=== PATIENT | male | born 1990 | race Caucasian/White ===

== ENCOUNTER 2017-08-01 19:14 | Emergency (ER) | payer OTHER ==
[~2017-08-01] VITALS: Ht 167.6 cm; Wt 81.6 kg
--- NOTE | 2017-08-01 19:16 | NUR ---
PT AMBULATORY TO ER BED 12. 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 NO ORAL TRAUMA NOTED. PLACED ON SEIZURE PRECAUTION. PT IS AAO. STATES NOT TAKING HIS MEDICATION FOR A WEEK NOW. C/O NAUSEA. AWAITING MD FIELDS.
--- NOTE | 2017-08-01 19:35 | NUR ---
DR WIGGINS AT BEDSIDE FOR EVAL.
--- NOTE | 2017-08-01 19:48 | NUR ---
TYPEWRITER ASSEMBLER AT BEDSIDE FOR BLOOD DRAW.
[2017-08-01 19:50] LABS: BASOPHILS # (AUTO) 0.2 /CMM (0.0-0.2); BASOPHILS % (AUTO) 1.7 % (0.0-2.0); EOSINOPHILS # (AUTO) 0.4 /CMM (0.0-0.7); HEMATOCRIT 43 % (39-51); HEMOGLOBIN 14.3 g/dL (13.5-17.5); LYMPHOCYTES # (AUTO) 4.1 /CMM (0.8-4.8); LYMPHOCYTES % (AUTO) 37.5 % (20.0-44.0); MEAN CORPUSCULAR HEMOGLOBIN 29 PG (26.0-33.0); MEAN CORPUSCULAR HGB CONC 33 g/dl (31.0-36.0); MEAN CORPUSCULAR VOLUME 88 fL (80-96); MONOCYTES # (AUTO) 0.9 /CMM (0.1-1.30); MONOCYTES % (AUTO) 8.2 % (2.0-12.0); NEUTROPHILS # (AUTO) 5.3 /CMM (1.8-8.9); NEUTROPHILS % (AUTO) 48.6 % (43.0-81.0); PLATELET COUNT (AUTO) 299 /CMM (150-450); RDW COEFFICIENT OF VARIATION 13.1 (11.5-15.0); RED BLOOD CELL COUNT(AUTO) 4.86 MIL/uL (4.5-6.0); WHITE BLOOD COUNT (AUTO) 10.9 K/uL (4.3-11.0)
--- NOTE | 2017-08-01 19:51 | NUR ---
CALLED IN WAITING ROOM NO ANSWER
[2017-08-01 20:00] LABS: CALCIUM, SERUM 8.8 mg/dL (8.5-10.1); CREATININE 0.8 mg/dL (0.6-1.3); POTASSIUM 4.1 mmol/L (3.5-5.1)
[2017-08-01 20:05] LABS: PHENYTOIN (DILANTIN) 4.5 ug/ml (10.0-20.0)
[2017-08-01 20:06] LABS: ALBUMIN 3.6 g/dL (3.4-5.0); BILIRUBIN,TOTAL 0.1 mg/dL (0.2-1.0)
[2017-08-01] MEDS ORDERED: PHENYTOIN EXTENDED RELEASE 100 MG CAPSULE PO ONE ×2 (20:30→20:43)
[2017-08-01] MEDS ORDERED: IBUPROFEN 600 MG TABLET PO ONE ×2 (20:30→20:42)
--- NOTE | 2017-08-01 21:17 | NUR ---
Patient discharged to home in stable condition. Written and verbal after care instructions given. Patient verbalizes understanding of instruction.
[2017-08-01 21:18] VITALS: BP 125/80
== END 2017-08-01 21:19 | disposition home or self-care (01) ==
LOC: ER 19:16
DX: G40.909 Epilepsy, unspecified, not intractable, without status epilepticus (principal); Z91.14 Patient's other noncompliance with medication regimen; F17.200 Nicotine dependence, unspecified, uncomplicated
CPT/HCPCS: 36415; 80048-TC; 80076-TC; 80185-TC; 85025-TC; A4606; Z7610